=== PATIENT | female | born 1955 | race Caucasian/White ===

== ENCOUNTER 2016-08-19 11:52 | Emergency (ER) | payer OTHER ==
[~2016-08-19] VITALS: Ht 167.6 cm; Wt 77.5 kg
[2016-08-19 11:59] VITALS: Ht 167.6 cm; Wt 77.5 kg
[2016-08-19] MEDS ORDERED: traMADol 50 MG TAB PO ONE (13:00)
--- NOTE | 2016-08-19 13:03 | ERD ---
ER Documentation Chief Complaint Date/Time DATE: 08/19/16 TIME: 13:01 Chief Complaint Complains of right shoulder pain x 3 days HPI Patient is a 61-year-old female who presents with sudden onset, intermittent, moderate, dull pain to the right shoulder for 2 days after having a mechanical ground-level fall and landing on her right shoulder. She denies head trauma, neck pain, paresthesias, or other injury. Patient reports pain with trying to lift her arm above 90. She has been taking ibuprofen without significant relief. ROS All systems reviewed and are negative except as per history of present illness. Medications Home Meds Active Scripts Tramadol HCl (Tramadol HCl) 50 Mg Tablet, 50 MG PO Q6 Y for PAIN, #20 TAB Prov:MCKENNA SAGE MD 08/19/16 Allergies Allergies: Coded Allergies: No Known Allergy (Unverified , 08/19/16) PMhx/Soc Past medical history: None Past surgical history: None Social history: No alcohol or tobacco Medical and Surgical Hx: pt denies Medical Hx, pt denies Surgical Hx Hx Alcohol Use: No Hx Substance Use: No Hx Tobacco Use: No Smoking Status: Never smoker FmHx Family History: No coronary disease, No diabetes Physical Exam Vitals Vital Signs Date Time Temp Pulse Resp B/P Pulse Ox O2 Delivery O2 Flow Rate FiO2 08/19/16 11:59 97.6 74 20 156/75 99 Physical Exam Const: Alert, no acute distress Head: Atraumatic Eyes: Normal Conjunctiva, no pallor or icterus ENT: Normal External Ears, Nose and Mouth. Neck: Full range of motion. New midline tenderness. Resp: Clear to auscultation bilaterally, no wheezes, no rales Cardio: Regular rate and rhythm, no murmurs Abd: Soft, non tender, non distended. Skin: No petechiae or rashes Back: No midline or flank tenderness Ext: No cyanosis, or edema. Tenderness to the anterior right shoulder, pain with active and passive elevation of right shoulder above 90. No pain with internal or external rotation against resistance. No visible deformity. Compartment soft, no elbow tenderness, 2+ radial pulse. Neur: Awake and alert, sensory and motor function intact at the hand in radial, median, and ulnar distributions Psych: Normal Mood and Affect Results 24 hrs Current Medications Medications (Trade) Dose Ordered Sig/Joaquin Route PRN Reason Start Time Stop Time Status Last Admin Dose Admin Tramadol HCl (Ultram) 50 mg ONCE ONCE PO 08/19/16 13:00 08/19/16 13:01 DC 08/19/16 12:55 Procedures/MDM MDM: Patient is a 61-year-old female with mechanical ground-level fall with contusion to right shoulder. She is neurovascularly intact on exam. X-ray is unremarkable. There is no associated trauma. Exam suggests shoulder contusion and possible element of impingement syndrome. Patient is given a sling for comfort, and tramadol for pain. She is advised to follow-up with her PMD if symptoms do not improve. Departure Diagnosis: Primary Impression: Shoulder injury Encounter type: initial encounter Laterality: right Qualified Code: S49.91XA - Shoulder injury, right, initial encounter Condition: Stable MCKENNA SAGE MD Aug 19, 2016 13:03
--- NOTE | 2016-08-19 14:22 | RADRPT ---
PROCEDURE: XR Shoulder. CLINICAL INDICATION: Right shoulder pain TECHNIQUE: Two views of the right shoulder are available for review. COMPARISON: None available FINDINGS: There is normal mineralization and alignment of the bones of the right shoulder. No acute fracture or dislocation is identified. The glenohumeral joint is within normal limits. The acromioclavicular joint is intact. The visualized portions of the right chest wall are grossly unremarkable. The sof t tissues are within normal limits. IMPRESSION: 1. Unremarkable right shoulder series. RPTAT: AA .Silvino Leiva MD, Date Time Electronically viewed and signed by .Silvino Leiva MD, on 08/19/2016 14:21 .B/
[2016-08-19] MEDS ORDERED: TRAM50TA2 PO (15:12)
== END 2016-08-19 15:23 | disposition home or self-care (01) ==
LOC: FTE 11:52
DX: S49.91XA Unspecified injury of right shoulder and upper arm, initial encounter (principal); W18.39XA Other fall on same level, initial encounter; Y92.9 Unspecified place or not applicable
CPT/HCPCS: 73030; Z7610

== ENCOUNTER 2017-07-27 10:23 | Day surgery (SDC) | END 2017-07-27 16:25 | disposition home or self-care (01) ==